=== PATIENT | female | born 1985 ===

== ENCOUNTER 2016-12-28 19:10 | Emergency (ER) | payer OTHER ==
[2016-12-28 19:25] VITALS: BP 107/67
--- NOTE | 2016-12-28 19:55 | UC ---
HPI Febrile Illness - HPI Summary HPI Summary: 31 y/o female with c/o cough, fever, chills, throat pain, sinus pressure since , rash since tuesday. Patient was cleaning with scrubbing bubbles, however has used in past, no otehr new meds/ exposures. fever intermittent, tactile but patient states felt very warm, greater than 101. son was sick weeks ago with PNA. no recent abx, no new medications. Patient took albuterol , breathing imrpoved. 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 - History of Current Complaint Chief Complaint: UCGeneralIllness Time Seen by Provider: 12/28/16 19:29 Hx Obtained From: Patient Hx Last Menstrual Period: 12/19/16 Onset/Duration: Started Days Ago Timing: Constant Initial Severity: Moderate Current Severity: Severe Associated Signs and Symptoms: Chills, Sore Throat - Allergy/Home Medications Allergies/Adverse Reactions: Allergies Allergy/AdvReac Type Severity Reaction Status Date / Time Codeine Allergy Swelling Verified 12/28/16 19:20 Home Medications: Home Medications Albuterol HFA INHALER* [Ventolin HFA Inhaler*] 1 - 2 puff INH Q6H PRN 12/28/16 [ History Confirmed 12/28/16] PMH/Surg Hx/FS Hx/Imm Hx Previously Healthy: Yes Infectious Disease History: No Infectious Disease History: Denies: Traveled Outside the [place] in Last 30 Days - Social History Alcohol Use: Occasionally Substance Use Type: Reports: None Smoking Status (MU): Light Every Day Tobacco Smoker Type: Cigarettes Amount Used/How Often: <1/2 PPD Length of Time of Smoking/Using Tobacco: On and Off Since Age 16 Have You Smoked in the Last Year: Yes Review of Systems Constitutional: Fever - tactile, Fatigue Skin: Rash ENT: Sore Throat, Sinus Congestion Respiratory: Cough Neurological: Headache All Other Systems Reviewed And Are Negative: Yes Physical Exam Triage Information Reviewed: Yes Appearance: Well-Appearing, No Pain Distress, Ill-Appearing - mild Vital Signs: Initial Vital Signs Temp 99.2 F 12/28/16 19:15 Pulse 114 12/28/16 19:15 Resp 18 12/28/16 19:15 BP 107/67 12/28/16 19:15 Pulse Ox 98 12/28/16 19:15 Vital Signs Reviewed: Yes Eyes: Positive: Conjunctiva Clear, Discharge - eatery eyes ENT: Positive: Hearing grossly normal, Pharyngeal erythema, TM dull - + fluid levells b/l, TM red, Tonsillar swelling, Other: - sinus tenderness front, max b/ l Neck: Positive: Supple, Nontender, Enlarged Nodes @ - submand Respiratory: Positive: Chest non-tender, Lungs clear, Normal breath sounds, No respiratory distress, No accessory muscle use Cardiovascular: Positive: RRR Abdomen Description: Positive: Nontender, Soft Neurological: Positive: Fatigued Skin: Positive: rashes - follicular raised erythematous rash over b/l arms nontender, no drainage Course/Dx - Course Course Of Treatment: Sinusitis, pharyngitis. AbX given, f/u with PCP, OTCs for symptsom, work note given - Febrile Illness Differential Diagnoses: Abscess, Bacteremia, Pneumonia, Sepsis - Diagnoses Clinic Provider Diagnoses: pharyngitis, sinusitis Discharge - Discharge Plan Condition: Good Disposition: HOME Prescriptions: Azithromyxin MARQUES (NF) [Z-Marques (Zithromax) 250 mg tabs #6] 2 tab PO .TODAY, THEN 1 DAILY #6 tab Benzonatate [TESSALON 200 MG CAP] 200 mg PO TID PRN #30 cap PRN Reason: Cough Patient Education Materials: Pharyngitis (ED), Sinusitis (ED) Forms: *Work Release Referrals: Kirit Ramirez MD [Medical Doctor] - Additional Instructions: - antibiotics as prescribed - FOllow up with primary physician if no relief of symptoms within 2 days - return to UC/ ER with increased fever, shortness of breath, chest pain, headache or worsening symptoms - marivel sanches for cough - increase fluid intake
== END 2016-12-28 20:01 | disposition home or self-care (01) ==
LOC: UCCORT 19:10
DX: J02.9 Acute pharyngitis, unspecified (principal); J32.9 Chronic sinusitis, unspecified; R21 Rash and other nonspecific skin eruption; R50.9 Fever, unspecified; R53.83 Other fatigue; Z88.5 Allergy status to narcotic agent; F17.210 Nicotine dependence, cigarettes, uncomplicated
CPT/HCPCS: 99212; G0463

== ENCOUNTER 2019-05-21 15:55 | Emergency (ER) | payer BC, OTHER ==
[2019-05-21 16:05] VITALS: BP 114/66
[2019-05-21 16:22] LABS: Influenza A Molecular POSITIVE (Negative)
--- NOTE | 2019-05-21 16:38 | UC ---
FLU HPI - HPI Summary HPI Summary: Pt c/o sudden onset of fever, chills, body aches, cough, nausea and vomiting X 2 days. Has known exposure to flu. - History of Current Complaint Chief Complaint: UCRespiratory Stated Complaint: COUGH,CHILLS, BODY ACHES Time Seen by Provider: 05/21/19 16:19 Hx Obtained From: Patient Hx Last Menstrual Period: 04/2019 ?: No Onset/Duration: Sudden Onset, Still Present Severity Currently: Moderate Severity Initially: Moderate Pain Intensity: 6 Associated Signs & Symptoms: Positive: Fever, Myalgia, Cough, Nasal Congestion, Headache, Vomiting Related Hx: Possible Flu/Infectious Exposure - Risk Factors Influenza Risk Factors: Negative - Allergy/Home Medications Allergies/Adverse Reactions: Allergies Allergy/AdvReac Type Severity Reaction Status Date / Time codeine Allergy Swelling Verified 05/21/19 16:01 PMH/Surg Hx/FS Hx/Imm Hx Previously Healthy: Yes - Surgical History Surgical History: Yes Surgery Procedure, Year, and Place: tubal x2 - Family History Known Family History: Positive: Cardiac Disease - Social History Occupation: Employed Full-time Lives: With Family Alcohol Use: Occasionally Substance Use Type: None Smoking Status (MU): Light Every Day Tobacco Smoker Type: Cigarettes Amount Used/How Often: <1/2 PPD Length of Time of Smoking/Using Tobacco: On and Off Since Age 16 Have You Smoked in the Last Year: Yes - Immunization History Most Recent Influenza Vaccination: no this 2018 Review of Systems All Other Systems Reviewed And Are Negative: Yes Constitutional: Positive: Fever, Chills, Fatigue Skin: Positive: Negative Eyes: Positive: Negative ENT: Positive: Sore Throat Respiratory: Positive: Cough Cardiovascular: Positive: Negative Gastrointestinal: Positive: Vomiting Genitourinary: Positive: Negative Motor: Positive: Negative Neurovascular: Positive: Negative Musculoskeletal: Positive: Myalgia Neurological: Positive: Negative Psychological: Positive: Negative Is Patient Immunocompromised?: No Physical Exam Triage Information Reviewed: Yes Appearance: Ill-Appearing Vital Signs: Initial Vital Signs Temp 100.2 F 05/21/19 16:02 Pulse 113 05/21/19 16:02 Resp 15 05/21/19 16:02 BP 114/66 05/21/19 16:02 Pulse Ox 100 05/21/19 16:02 Vital Signs Reviewed: Yes Eye Exam: Normal ENT: Positive: Nasal congestion Dental Exam: Normal Neck exam: Normal Respiratory Exam: Normal Respiratory: Positive: No respiratory distress Cardiovascular: Positive: Tachycardia Musculoskeletal Exam: Normal Neurological Exam: Normal Psychological Exam: Normal Skin Exam: Normal Flu Course/Dx - Differential Dx/Diagnosis Differential Diagnosis/HQI/PQRI: Influenza, Upper Respiratory Infection Provider Diagnosis: Influenza A Discharge ED - Sign-Out/Discharge Documenting (check all that apply): Patient Departure All imaging exams completed and their final reports reviewed: No Studies - Discharge Plan Condition: Stable Disposition: HOME Prescriptions: Benzonatate CAP* [Tessalon 100 MG CAP*] 100 mg PO Q8H PRN #21 cap PRN Reason: Cough Ondansetron HCl [Zofran] 4 mg PO Q8H PRN #15 tablet PRN Reason: Nausea Oseltamivir CAP* [Tamiflu CAP*] 75 mg PO Q12H #10 cap Patient Education Materials: Influenza (ED) Forms: *Work Release Referrals: [facility] [Outside] - If Needed No Primary Care Phys,NOPCP [Primary Care Provider] - - Billing Disposition and Condition Condition: STABLE Disposition: Home
== END 2019-05-21 16:45 | disposition home or self-care (01) ==
LOC: UCCORT 15:55
DX: J11.1 Influenza due to unidentified influenza virus with other respiratory manifestations (principal); F17.210 Nicotine dependence, cigarettes, uncomplicated; Z88.5 Allergy status to narcotic agent
CPT/HCPCS: 99212; G0463